=== PATIENT | male | born 1990 | race Caucasian/White ===

== ENCOUNTER → 2022-05-16 16:01 | Outpatient (CLI) | payer OTHER, SELFPAY ==
--- NOTE | 2022-05-16 16:18 | DI.RAD.S_ITS ---
PROCEDURE: XR FINGER RT MIN 2V INDICATIONS: RT. THUMB INJURY TECHNIQUE: AP hand, 2 views of the 1st finger(s) acquired. COMPARISON: None. FINDINGS: Bones: No fractures or dislocations. No suspicious bony lesions. Soft tissues: No suspicious soft tissue calcifications. IMPRESSION: No acute fracture. No osseous lesion. If clinical suspicion and/orsymptoms persist, further assessment with repeat plainfilms, or advanced imaging (e.g., CT, MRI, or bone scan) may be helpful for further assessment. Dictated by: Patrick Michelle [facility] Interpreted: Robles Hensley MD on 05/16/2022 at 16:37 Transcribed by: NAVIN on 05/16/2022 at 16:38 Approved by: Julio Hensley M.D. on 05/18/2022 at 16:22
== END ==
PROVIDERS: Referring Provider Student in an Organized Health Care Education/Training Program; Visit Provider Student in an Organized Health Care Education/Training Program
DX: S66.411A Strain of intrinsic muscle, fascia and tendon of right thumb at wrist and hand level, initial encounter (principal); S63.601A Unspecified sprain of right thumb, initial encounter; T14.8XXA Other injury of unspecified body region, initial encounter; Y99.0 Civilian activity done for income or pay
CPT/HCPCS: 73140